=== PATIENT | male | born 1945 | race Caucasian/White ===

== ENCOUNTER → 2019-02-03 | Outpatient (CLI) | payer OTHER ==
[~2019-02-03] MED LIST: ACEON4 MG PO; CALCIUM OR; FINASTERIDE5 MG PO; FISHOIL; FLOMAX PO; LIPITOR40 MG; PROTONIX40 M2 PO; SELENIMIN50 MCG PO; SMZ/TMP DS 800/160; TOPROL XL50 MG PO; VITAMIN E400 UNI1 PO; ZINC CHELATE15 MG PO
--- NOTE | 2019-02-03 15:25 | EXE ---
[facility] [place] [address] STRESS ECHOCARDIOGRAM Name: MENG CARLSON Room #: SARAH Garza#: [id number] ������������� Admission: 02/03/19 ������������� Attend Phys: Ludwin Colon, Discharge: ��� ������������� ��� Date of : 45 Date of Service: 02/03/19 1525 �� Report #: [id number] �������� ��������������������������������������������[id number] THIS REPORT FOR: //name// APPROVED REPORT Study performed: 02/03/2019 13:23:51 Exam: Stress Echocardiogram Indication: CAD Patient Location: Out-Patient Stress Nurse: Nazia Murrieta RN Room #: Echo lab 2 Status: routine Ht: 5 ft 10 in HR: 76 bpm BP: 112/72 mmHg Rhythm: NSR Medical History Medical History: CAD s/p AR Cardiac Risk Factors: HTN, Hyperlipidemia Exercise History: Sedentary Procedure The patient underwent an Exercise Stress Test using the Modified Meng Protocol. Blood pressure, heart rate, and EKG were monitored. An Echocardiogram was performed by monogram technician in four stages in quad fashion. At peak stress, four selected images were obtained and placed side by side with resting images for comparison. Stress Test Details Stress Test: Exercise stress testing was performed using a modified Meng protocol. HR Resting HR: 76 bpm Max Heart Rate (APMHR): 147 bpm Max HR Achieved: 120 bpm Target HR (85% APMHR): 124 bpm % of APMHR: 81 Recovery HR: 87 bpm HR response to stress: Normal HR response to stress BP Resting BP: 112/72 mmHg Max BP: 160/76 mmHg Recovery BP: 136/76 mmHg [facility] [email or web address] [address] STRESS ECHOCARDIOGRAM Name: MENG CARLSON Room #: REG [facility]#: [id number] ������������� Admission: 02/03/19 ������������� Attend Phys: Ludwin Colon, Discharge: ��� ������������� ��� Date of : 45 Date of Service: 02/03/19 1525 �� Report #: [id number] �������� ��������������������������������������������[id number] BP response to stress: Normal blood pressure response to stress. ECG Resting ECG: Sinus Rhythm Stress ECG: Sinus Rhythm ST Change: Normal Maximum ST Deviation: 0 mm Arrhythmia: VPC Recovery ECG: Sinus Rhythm Recovery ST Deviation: 0 mm Recovery Arrhythmia: None Clinical Reason for Termination: Maximal effort Exercise duration: 8 min sec Highest Stage Achieved: Stage 2: 2.5 mph at 12% grade. Exercise capacity: 7 METs Overall Exercise Capacity for Age: Average Angina Score: None Stress ECG Conclusion Clinical: Non-ischemic ECG: Non-ischemic Gordon Treadmill Score is 8.0 which is Low risk. Pre-Stress Echo The resting Echocardiogram showed left ventricular contractility with an estimated Ejection Fraction of about >55%. Post-Stress Echo The stress Echocardiogram showed normal left ventricular contractility with an estimated Ejection Fraction of about 65-70%. Clinical Normal augmentation of myocardial wall segments using a 17 segment model. No clinical or ECG evidence for ischemia. Conclusion Clinical Response: Non-ischemic Exercise Capacity: Below Average Stress ECG Response: Non-ischemic Stress Echo Images: Non-ischemic The left ventricle is normal in size and wall thickness in both the rest and stress images. Normal stress echocardiogram with submaximal exercise stress. [facility] [place] [address] STRESS ECHOCARDIOGRAM Name: MENG CARLSON Room #: REG [facility]#: [id number] ������������� Admission: 02/03/19 ������������� Attend Phys: Ludwin Colon, Discharge: ��� ������������� ��� Date of : 45 Date of Service: 02/03/19 152 �� Report #: [id number] �������� ��������������������������������������������[id number] Other Information Study Quality: Adequate <Conclusion> The left ventricle is normal in size and wall thickness in both the rest and stress images. Normal stress echocardiogram with submaximal exercise stress. ��������������������������������������������� <ELECTRONICALLY SIGNED> ���������������������������������������� By: Ludwin Colon MD, FACC ��������������������������������������������� 02/03/19 1525 152 24 Ludwin Colon MD, FACC /INF
== END ==
LOC: CV 01-27 06:58
DX: I25.10 Atherosclerotic heart disease of native coronary artery without angina pectoris (principal); I10 Essential (primary) hypertension; E78.5 Hyperlipidemia, unspecified

== ENCOUNTER 2019-12-14 12:29 | Emergency (ER) | payer OTHER ==
[~2019-12-14] VITALS: Ht 172.7 cm; Wt 72.6 kg
--- NOTE | ~2019-12-14 | EKG ---
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
[2019-12-14 14:01] LABS: ABSOLUTE NEUTROPHILS 7.9 thou/uL (1.4-8.2); BASOPHILS 0.6 % (0.0-2.0); EOSINOPHILS 6.5 % (0.0-3.0); HEMOGLOBIN 8.1 gm/dL (14.0-18.0); LYMPHOCYTES 14.1 % (24.0-44.0); MCH 22.8 pg (26.0-34.0); MCV 73.5 fL (80.0-100.0); MONOCYTES 9.9 % (1.0-8.0); PLATELET COUNT 499 thou/uL (150-400); POLYS 68.9 % (36.0-66.0); RBC 3.54 mil/uL (4.50-6.00); RDW 15.7 % (10.5-14.5); WBC 11.5 thou/uL (4.0-11.0)
[2019-12-14 14:14] LABS: CALCIUM 8.6 mg/dL (8.5-10.1); CREATININE 0.8 mg/dL (0.7-1.3); POTASSIUM 3.7 mmol/L (3.5-5.1)
[2019-12-14 14:21] LABS: ALBUMIN 3.5 g/dL (3.4-5.0); DIRECT BILIRUBIN 0.1 mg/dL (<0.1-0.2); SGOT 23 U/L (15-37); SGPT 21 U/L (30-65); TOTAL BILIRUBIN 0.3 mg/dL (<0.1-1.0); TOTAL PROTEIN 7.5 g/dL (6.4-8.2); TROPONIN-I <0.06 ng/mL (<0.06)
[2019-12-14 14:45] LABS: ANISOCYTOSIS 2+; MICROCYTES 1+; POLYCHROMASIA SLIGHT
[2019-12-14 14:46] LABS: HYPOCHROMASIA 1+; POIKILOCYTOSIS 1+
[2019-12-14] MEDS ORDERED: TRAMADOL 50 MG50 MG PO (15:30)
[2019-12-14 15:48] VITALS: BP 141/67
== END 2019-12-14 15:48 | disposition home or self-care (01) ==
LOC: ER 12:29
PROVIDERS: Nurse Practitioner Family
DX: R91.8 Other nonspecific abnormal finding of lung field (principal); D64.9 Anemia, unspecified; R07.89 Other chest pain; I10 Essential (primary) hypertension; I25.10 Atherosclerotic heart disease of native coronary artery without angina pectoris; E78.00 Pure hypercholesterolemia, unspecified; Z90.49 Acquired absence of other specified parts of digestive tract; Z95.5 Presence of coronary angioplasty implant and graft

== ENCOUNTER 2020-01-05 13:31 | Emergency (ER) | payer OTHER ==
[~2020-01-05] VITALS: Ht 177.8 cm; Wt 68.0 kg
[~2020-01-05 13:31] MED LIST changes: +TRAMADOL 50 MG50 MG PO
[2020-01-05] MEDS ORDERED: NORCO 5-325 TA1 EAC1 PO (14:39)
[2020-01-05] MEDS ORDERED: LIDODERM1 EACH TOP (14:39)
[2020-01-05] MEDS ORDERED: ZOFRAN ODT4 MG PO (14:40)
[2020-01-05 15:54] VITALS: BP 131/74
--- NOTE | 2020-01-05 16:57 | NUR ---
FAXED REFERRAL TO [facility] SPOKE WITH IVY IN INTAKE SHE RECEIVED REFERRAL AND CAN ACCEPT. FAXED DC ORDER FOR HOME PT/OT THEY WILL NOTIFY PT TIME OF VISITS. CASE CLOSED.
== END 2020-01-05 15:54 | disposition home or self-care (01) ==
LOC: ER 13:31
DX: C79.89 Secondary malignant neoplasm of other specified sites (principal); M54.6 Pain in thoracic spine; I10 Essential (primary) hypertension; I25.10 Atherosclerotic heart disease of native coronary artery without angina pectoris; E78.00 Pure hypercholesterolemia, unspecified; Z90.49 Acquired absence of other specified parts of digestive tract; Z95.5 Presence of coronary angioplasty implant and graft

== ENCOUNTER → 2020-01-06 | Outpatient (CLI) | payer OTHER ==
[~2020-01-06] MED LIST changes: +IRON325 PO; +LIDODERM1 EACH TOP; +LYNOX 10-300 M1 EACH PO; +NORCO 5-325 TA1 EAC1 PO; +ZOFRAN ODT4 MG PO
== END ==
LOC: MRI 09:43 → CAT 09:43
DX: R16.0 Hepatomegaly, not elsewhere classified (principal); R91.8 Other nonspecific abnormal finding of lung field; D64.9 Anemia, unspecified; R90.82 White matter disease, unspecified; G31.9 Degenerative disease of nervous system, unspecified; I70.0 Atherosclerosis of aorta; K56.41 Fecal impaction; M25.78 Osteophyte, vertebrae; M48.04 Spinal stenosis, thoracic region; M41.84 Other forms of scoliosis, thoracic region

== ENCOUNTER 2020-01-08 17:11 | Emergency (ER) | payer OTHER ==
[~2020-01-08] VITALS: Ht 177.8 cm; Wt 68.0 kg
[~2020-01-08 17:11] MED LIST changes: -IRON325 PO; -LYNOX 10-300 M1 EACH PO
[2020-01-08 19:07] LABS: HEMATOCRIT 23.1 % (42.0-52.0); HEMOGLOBIN 7.1 gm/dL (14.0-18.0); MCH 20.9 pg (26.0-34.0); MCHC 30.8 g/dL (28.0-37.0); PLATELET COUNT 470 thou/uL (150-400); RBC 3.39 mil/uL (4.50-6.00); RDW 16.2 % (10.5-14.5); WBC 9.6 thou/uL (4.0-11.0)
[2020-01-08 19:12] LABS: CALCIUM 8.9 mg/dL (8.5-10.1); CREATININE 0.7 mg/dL (0.7-1.3); POTASSIUM 3.6 mmol/L (3.5-5.1)
[2020-01-08 19:18] LABS: ALBUMIN 3.1 g/dL (3.4-5.0); TOTAL BILIRUBIN 0.5 mg/dL (<0.1-1.0); TOTAL PROTEIN 6.5 g/dL (6.4-8.2)
[2020-01-08 19:39] LABS: ABSOLUTE NEUTROPHILS 7.9 thou/uL (1.4-8.2); ANISOCYTOSIS 1+; MICROCYTES 1+
[2020-01-08 19:40] LABS: HYPOCHROMASIA 1+
[2020-01-08] MEDS ORDERED: LYNOX 10-300 M1 EACH PO (20:19)
[2020-01-08] MEDS ORDERED: IRON325 PO (20:29)
[2020-01-08 20:56] VITALS: BP 142/68
== END 2020-01-08 20:50 | disposition left against medical advice (07) ==
LOC: ER 17:11
PROVIDERS: Physician Assistant
DX: D64.9 Anemia, unspecified (principal); M54.9 Dorsalgia, unspecified; I25.10 Atherosclerotic heart disease of native coronary artery without angina pectoris; I10 Essential (primary) hypertension; E78.00 Pure hypercholesterolemia, unspecified; Z90.89 Acquired absence of other organs

== ENCOUNTER → 2020-01-12 | Outpatient (CLI) | payer OTHER ==
[~2020-01-12] MED LIST changes: +IRON325 PO; +LYNOX 10-300 M1 EACH PO
[2020-01-12 11:45] VITALS: BP 150/74
--- NOTE | 2020-01-12 13:50 | NUR ---
PT GIVEN FENTANYL 50 MCG AND VERSED 1 MG FOR PROCEDURE, CT GUIDED LIVER BX. GIVEN AT 1110.
--- NOTE | 2020-01-14 16:07 | PATH ---
[facility] [address] [place] [address] PATHOLOGY RPT PROCEDURE Name: MENG CARLSON Room #: REG [facility] M.R.#: [id number] Admission: 01/12/20 Date of : 45 Discharge: Report #: [id number] Path Case #: [id number] [facility] Accession Number: [id number] . 01 Material submitted: . liver - LIVER BX . 01 Clinical history: . liver mass . 02 Diagnosis: Liver, mass, needle core biopsy: - MODERATELY DIFFERENTIATED ADENOCARCINOMA, FAVOR COLON ORIGIN (PLEASE SEE COMMENT). [facility] 01/14/2020 1211 Local . 02 Comment: Examination shows a moderately differentiated adenocarcinoma associated with "dirty necrosis" in the center of the malignant glands. One needle core biopsy tissue represents uninvolved hepatic parenchyma. History of multiple hepatic lesions, pulmonary mass lesions as well as bone lesions is gathered from the electronic medical record. History of possible colon carcinoma is gathered as well. Multiple properly controlled immunohistochemical stains are performed on block A2. The tumor shows strong nuclear reactivity with CDX-2. The tumor cells show scattered rare cells reactive to CK-20. CK7, as well as TTF-1 showed no reactivity within the tumor cells. CK19 shows diffuse membranous reactivity present within the malignant glands as well as the interlobular bile ducts identified. Overall, the features are certainly compatible with a metastatic colonic adenocarcinoma. The strongly reactive CK19 is suggestive of a possible "pancreato-biliary" primary; however, the non-reactive CK7 argues against the same. The non-reactive TTF-1 argues against a lung origin as well. . Co-review: Dr. Brenda Maza. . Findings of this case are telephoned to Dr. Roberts at noon on 01/13/2020. (IUV/db; 01/14/2020) . 02 Electronically signed: . Daphne Davidson MD, Pathologist NPI- [id number] . 01 Gross description: . The specimen is received in formalin, labeled "Meng Carlson, liver BX" and consists of multiple chauhan-brown delicate needle cores and their fragments measuring between 0.1 cm and 0.9 cm in length and 0.1 [place] [address] PATHOLOGY RPT PROCEDURE Name: MENG CARLSON Room #: REG [facility]#: [id number] Admission: 01/12/20 Date of : 45 Discharge: Report #: [id number] Path Case #: [id number] diameter. They are entirely submitted in A1-A3. (SDY; 01/12/2020) SYU/SYU 01/12/2020 1544 Local . 02 Pathologist provided ICD-10: C22.9 . 02 CPT . 151375, O17499, W65002 Specimen Comment: A courtesy copy of this report has been sent to [phone], [phone] Specimen Comment: [phone] Specimen Comment: Report sent to / DR MANCUSO Performed at: [address], [place] [id number] MD Jerad Ramos MD Phone: [phone] Performed at: [address] [id number] MD Daphne Davidson MD Phone: [phone]
== END ==
LOC: ULTRA 08:51 → CV 08:51 → ULTRA 19:56
DX: R16.0 Hepatomegaly, not elsewhere classified (principal)

== ENCOUNTER 2020-02-23 12:23 | Inpatient (IN) | payer OTHER ==
[~2020-02-23] VITALS: Ht 172.7 cm; Wt 59.0 kg
[2020-02-23 12:24] VITALS: BP 118/67
[2020-02-23 13:18] LABS: ANION GAP 6 mmol/L (7-16); BUN 9 mg/dL (7-18); CALCIUM 7.3 mg/dL (8.5-10.1); CHLORIDE 97 mmol/L (98-107); CO2 26 mmol/L (21-32); CREATININE 0.5 mg/dL (0.7-1.3); GLUCOSE 101 mg/dL (74-106); POTASSIUM 3.8 mmol/L (3.5-5.1); SODIUM 129 mmol/L (136-145)
[2020-02-23 13:28] LABS: ALBUMIN 1.5 g/dL (3.4-5.0); SGOT 39 U/L (15-37); SGPT 15 U/L (30-65); TOTAL BILIRUBIN 0.9 mg/dL (<0.1-1.0); TOTAL PROTEIN 5.3 g/dL (6.4-8.2); TROPONIN-I <0.06 ng/mL (<0.06)
[2020-02-23 13:56] LABS: ABSOLUTE NEUTROPHILS 14.1 thou/uL (1.4-8.2); BASOPHILS 0.8 % (0.0-2.0); EOSINOPHILS 0.2 % (0.0-3.0); HEMATOCRIT 32.1 % (42.0-52.0); HEMOGLOBIN 10.1 gm/dL (14.0-18.0); LYMPHOCYTES 3.4 % (24.0-44.0); MCH 25.8 pg (26.0-34.0); MCHC 31.4 g/dL (28.0-37.0); MCV 82.1 fL (80.0-100.0); MONOCYTES 6.3 % (1.0-8.0); PLATELET COUNT 292 thou/uL (150-400); POLYS 89.3 % (36.0-66.0); RDW 30.4 % (10.5-14.5); WBC 15.8 thou/uL (4.0-11.0)
[2020-02-23 14:58] LABS: URINE BLOOD TRACE (Negative); URINE COLOR YELLOW; URINE GLUCOSE-RANDOM* NEGATIVE (Negative); URINE KETONES NEGATIVE (Negative); URINE LEUKOCYTES-REFLEX TRACE (Negative); URINE NITRITE-REFLEX POSITIVE (Negative); URINE PROTEIN (DIPSTICK) 1+ (Negative); URINE SPECIFIC GRAVITY 1.025 (1.005-1.035)
[2020-02-23 14:59] LABS: URINE CLARITY HAZY
[2020-02-23 15:01] LABS: ICTOTEST (BILI CONFIRMATORY) Negative (Negative); URINE BILIRUBIN NEGATIVE (Negative)
[2020-02-23 15:09] LABS: ANISOCYTOSIS 3+; HYPOCHROMASIA 1+; MACROCYTES 1+; MICROCYTES 1+; OVALOCYTES FEW
[2020-02-23 15:24] LABS: CASTS None Seen /LPF (None Seen); CRYSTALS None Seen /LPF (None Seen); SQUAMOUS None Seen /LPF (0-3)
[2020-02-23 15:25] LABS: BACTERIA-REFLEX >30 Many /HPF (None Seen); URINE RBC None Seen /HPF (0-2); URINE WBC-REFLEX 6-15 Few /HPF (0-5)
--- NOTE | 2020-02-23 15:54 | EKG ---
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 : 1945 Requested By: Alfonso Amaral Order Number: [id number] MD: Terrence Mtz Measurements Intervals [place] Rate: 89 P: 38 ID: [id number] QRS: -7 QRSD: 102 T: 29 QT: 389 QTc: 474 Interpretive Statements Sinus rhythm Low voltage, precordial leads Abnormal R-wave progression, early transition Compared to ECG 12/14/2019 13:41:10 Low QRS voltage now present Electronically Signed On 02-23-2020 15:53:23 CDT by Terrence Mtz [email or web address] <ELECTRONICALLY SIGNED> By: Terrence Mtz MD 02/23/20 1553 1232 1232 Terrence Mtz MD /EPI
[2020-02-23 18:48] LABS: TSH 2.329 uIU/mL (0.358-3.740)
[2020-02-23 19:06] VITALS: BP 107/64
[2020-02-23 19:30] VITALS: BP 129/71
[2020-02-23 19:50] VITALS: BP 130/56
[2020-02-23 23:12] VITALS: BP 108/58
--- NOTE | 2020-02-24 01:12 | NUR ---
PT ARRIVED ON THE UNIT FROM ER @1945 A&0X4. PT ORIENTED TO THE ROOM. ADM DONE AND CHARTED. IV INTACT AND FLUIDS INFUISING. URINAL BY BEDSIDE. PT UP WITH ASSISTX1 TO THE BATHROOM HAD A SMALL BM THIS SHIFT. PT STATES HE HAS POOR APPETITE AND HAS BEEN EATING POORLY AT HOME AND ALSO GETS CHEMOTHERAPY AT BUT IS CURRENTLY ON HOLD. PO FLUID ENCOURAGED. FALL PREC IN PLACE AND CALL LIGHT IN REACH WILL CONT WITH POC TILL EOS.
[2020-02-24 04:36] LABS: CALCIUM 7.1 mg/dL (8.5-10.1); CREATININE 0.4 mg/dL (0.7-1.3); MAGNESIUM 1.7 mg/dL (1.8-2.4); POTASSIUM 3.1 mmol/L (3.5-5.1)
[2020-02-24 05:09] LABS: HEMATOCRIT 25.9 % (42.0-52.0); HEMOGLOBIN 8.4 gm/dL (14.0-18.0); MCH 26.8 pg (26.0-34.0); MCHC 32.4 g/dL (28.0-37.0); MCV 82.8 fL (80.0-100.0); PLATELET COUNT 274 thou/uL (150-400); RBC 3.13 mil/uL (4.50-6.00); RDW 30.9 % (10.5-14.5); WBC 10.2 thou/uL (4.0-11.0)
[2020-02-24 05:10] VITALS: BP 105/53
[2020-02-24 07:30] VITALS: BP 97/45
[2020-02-24 08:19] LABS: % SATURATION 44 % (20-39); IRON 27 ug/dL (65-175); TIBC 62 ug/dL (250-450)
[2020-02-24 08:23] LABS: ANISOCYTOSIS 1+; BURR CELLS OCCASIONAL; HYPOCHROMASIA SLIGHT; POIKILOCYTOSIS 1+; TARGET CELLS OCCASIONAL
[2020-02-24 08:35] LABS: FOLIC ACID 3.8 ng/mL (8.6-58.9)
--- NOTE | 2020-02-24 11:52 | NUR ---
Pt has folate and vitamin D deficiency, recommend obtain order for supplementation.
--- NOTE | 2020-02-24 15:04 | NUR ---
PT ADMITTED RELATED TO WEAKNESS AND BILAT LE SWELLING. CM REVIEWED CHART AND SPOKE WITH CARE TEAM. CM CALLED AND SPOKE WITH PT OVER THE PHONE THIS MORNING. PT APPEARED TO BE A&O X4. CM ROLE INTRODUCED. PT INDICATED HE LIVES ALONE IN A CONDO WITH 2 STEPS TO ENTER AND 1 STEP INSIDE. PT INDICATED HE HAS A CANE AND A FWW FOR USE AT HOME. PT INDICATED HE JUST FINISHED RADIATION AT AND CHEMO IS CURRENTLY ON HOLD. PT CONFIRMED THAT HIS PCP IS DR. MANCUSO. OUR RECORDS INDICATED THAT REFERRAL HAD BEEN SENT TO [facility] BUT PT INDICATED NO HH HX. CM SPOKE WITH PT ABOUT REPORT THAT THERE WAS DEBRIS AND DOG FECES IN THE HOME. PT INDICATED THAT HIS SISTER WHO IS ON HER WAY HERE FROM [place] WILL HIRE MARISSA TAI TO CLEAN CONDO. PT INDICATED HE PLANS TO RETURN HOME ONCE MEDICALLY STABLE AND THAT HE HOPES TO GO BACK TO [place] WITH SISTER. CM CALLED AND SPOKE WITH SISTER SHE WAS ON ROAD IN [place]. SHE ISN'T PT'S DPOA JUST ONLY NEXT OF KIN. SHE HAD SPOKEN WITH DR. ZAVALETA IN PAST BUT NOT RECENTLY. SHE IS HERE TO ASSIT BUT CAN'T STAY. SHE STATED THAT PT HAD ASKED ABOUT COMING TO STAY WITH HER IN [place] AND THAT SHE HADN'T DENIED HIM BUT THAT SHE WOULD BE SUPPORTIVE OF SERVICES AND SUPPORTS FOR HIM TO BE ABLE TO REMAIN HERE IT'S WHERE HE LIVES AND SHE'S HAD LIFE IN [place] AND NEEDS HIM TO BE ABLE TO COMPLETE ADLS. CM TO FOLLOW INDICATED WITH DC PLANNING.
[2020-02-24 15:33] VITALS: BP 120/60
--- NOTE | 2020-02-24 19:35 | NUR ---
Assumed pt care this am, pt is alert and oriented x3 but very forgetful and at times could get rude during assessment, does not want to be asked questions. Initially said yes to going for the MR, was taken down but refused to push through, pt returned to the floor informed MD. IV was out upon receiving the pt this am, informed MD all meds have been converted to PO. Appetite is poor, suppliments are hardly taken, small frequent feedings are done through out the day along with hydration, POC followed, no signs or verbalizations of distress have been noted. Endorsed to the night nurse. Fall precautions in place , is able to use the commode and stayed on the recliner in the am.
[2020-02-24 20:12] VITALS: BP 103/57
--- NOTE | 2020-02-24 22:27 | HC ---
[facility] [place] [address] CONSULTATION Name: RAPHAEL CARLSON Room #: 440-P ADM IN M.R.#: [id number] Admission: 02/23/20 Attend Phys: Robert Little MD Discharge: Date of : 45 Report #: [id number] THIS REPORT FOR: cc: FAM - Family physician unknown FAM - Family physician unknown Miguel Wallis MD ~ CC: Robert Gamino MD [facility] unknown REQUESTING CLINICIAN: Dr. Judith Barfield REASON FOR CONSULTATION: History of metastatic cancer. HISTORY OF PRESENT ILLNESS: The patient is a 74-year-old gentleman patient referred by Dr. Carlos Gamino with a history of weakness and decline in general health since about August. CAT scan found a spiculated lung mass as well as liver masses and also bone mets. The patient underwent a liver biopsy at [facility] in about 01/14/2020 which showed moderate to poorly differentiated adenocarcinoma. Additional stains are pending. The stain is possible pancreaticobiliary, but clinically this seems most consistent with a lung cancer. The patient was also iron deficient, so there is also a question about whether he could have a GI primary. Those scans have not revealed any suggestions on that. The patient has been undergoing radiation therapy to his back. He was deemed too weak and poor social support to consider chemotherapy. The patient just recently completed radiation therapy; we are now waiting to see if he can bounce back enough to consider therapy. Also, note that he has very poor social support with no one in the vicinity. His sister is as we speak traveling from out of [facility]. He jokingly calls her the evil sister. He does have a pet at home. The patient recently denies any headache, any fevers or chills. Does have poor appetite. Does not have a skin rash. Does not have any blood in his urine or stool. No mouth sores. PAST MEDICAL HISTORY: Notable for the history of the metastatic adenocarcinoma with liver biopsy, possible lung primary, who just recently receive radiation therapy to his back for improvement of pain. Also, history of BPH, also hyperlipidemia, also possible hypertension. 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 No significant alcohol or tobacco use. FAMILY HISTORY: Noncontributory. Has a sister from out of town. I do not believe he is . Does not have any children. [facility] [address] [place] [address] CONSULTATION Name: RAPHAEL CARLSON Room #: 440-P [facility] ..#: [id number] Admission: 02/23/20 Attend Phys: Robert Little MD Discharge: Date of : 45 Report #: [id number] MEDICATIONS: At this time currently include ceftriaxone, finasteride 5 mg daily, pantoprazole 40 daily, iron sulfate 325 b.i.d., heparin 5000 units b.i.d., diclofenac sodium topically, hydrocodone p.r.n., MiraLax p.r.n., Zofran p.r.n., IV fluids. PHYSICAL EXAMINATION: GENERAL: The patient appears his stated age. He is an elderly white male with poor dentition. VITAL SIGNS: Height is 5 feet 8 inches, 172.7 cm. Weight is 130 pounds or 59.02 kilograms. Blood pressure is 97/45, O2 sat 98%, respirations 18, pulse 75, afebrile at 98.7. MOOD: He is alert and pleasant, ____ has a hard time focusing his conversation. NEUROLOGIC: Speech and thought pattern generally intact. Moving extremities well. HEENT: Oropharynx, slightly dry mucosa. No thrush or lesions. Again, poor dentition, missing a number of teeth. LUNGS: Mostly clear without any wheezes, rhonchi or rales. HEART: Regular rate. LYMPHATICS: No enlarged lymph nodes in the supraclavicular, cervical, axillary or inguinal region. ABDOMEN: Scaphoid without masses. EXTREMITIES: Without clubbing, cyanosis or edema. RADIOLOGIC STUDIES: Done here include venous Doppler ultrasound of both legs yesterday that was unremarkable. Chest x-ray showing the spiculated mass in the right upper lobe. MRI head ordered by myself is pending. Lab review shows a BUN of 8, creatinine of 0.4. Sodium 129, now today 133. Total bilirubin 0.9, magnesium 1.7, alkaline phosphatase 217, ALT 15, albumin 1.5. Iron recently 27, low; TIBC 62, low; percent iron saturation 44%, slightly high. White count 10.2, hemoglobin 8.4. MCV 82.8, note that this is improved from about 65 and 73 back in December of this year. Platelets 274. Differential nonacute. UA did show many bacteria, some white cells with nitrite positive. Culture is pending. ASSESSMENT AND PLAN: 1. Metastatic adenocarcinoma, possible lung primary, but also possible the patient has 2 separate primaries, recently completed radiation therapy. Had discussed chemotherapy with the patient, but given his very poor social support, I have discussed with the patient I am afraid ____ may do more harm than benefit. We will await and discuss with sister. May need to consider moving back with sister or moving forward with nursing facility and hospice locally. 2. Dizziness and falling. We will check MRI head, which we have talked to the patient about as an outpatient, but he had declined. He has poor transportation issues. 3. Poor appetite and weakness. We will try prednisone 20 mg daily and watch cautiously. [facility] [address] [place] [address] CONSULTATION Name: RAPHAEL CARLSON Room #: 440-P ADM IN M.R.#: [id number] Admission: 02/23/20 Attend Phys: Robert Little MD Discharge: Date of : 45 Report #: [id number] 4. Possible urinary tract infection. Cultures pending. Continue antibiotics per others. 5. Hyperlipidemia. Statins as per others. 6. Back pain, improved status post radiation therapies. Continue diclofenac gel and hydrocodone and other agents. 7. Prophylaxis. Continue acid vicente as well as heparin. 8. Protein-calorie malnutrition. Offer nutritional support. 9. Weakness. Rehabilitation therapy services to see the patient. 10. Prognosis, probably very poor. Insight is also evolving. <ELECTRONICALLY SIGNED> By: Miguel Wallis MD 02/24/20 2227 0909 0946 Miguel Wallis MD /nt
--- NOTE | 2020-02-25 04:22 | NUR ---
ASSESSED AT START OF SHIFT PT A&OX3. AWAKE AND AWARE OF SITUATION BUT FORGETFULL EASILY REORIENTED FOR THIS NURSE. INCONTINENT OF B&B. UP WITH ASSISTX1 TO BSC. BLACK STOOL NOTED PT ON IRON PILLS. DENIES PAIN, N/V. PO FLUIDS ENCOURAGED AND ADMINISTERED FREQ DURING SHIFT. PT STATES SISTER IS COMING FROM [place] AND HE HAS A MEETING WITH THE ONCOLOGIST. FALL PREC IN PLACE AND FREQ ROUNDING DONE. WILL CONT WITH POC TILL EOS.
[2020-02-25 04:47] VITALS: BP 111/52
[2020-02-25 05:35] LABS: HEMATOCRIT 27.9 % (42.0-52.0); HEMOGLOBIN 8.9 gm/dL (14.0-18.0); MCH 26.3 pg (26.0-34.0); MCHC 31.9 g/dL (28.0-37.0); MCV 82.6 fL (80.0-100.0); RBC 3.37 mil/uL (4.50-6.00); RDW 30.7 % (10.5-14.5); WBC 7.4 thou/uL (4.0-11.0)
[2020-02-25 08:05] VITALS: BP 117/52
--- NOTE | 2020-02-25 15:30 | NUR ---
PT WAS HAVING MRI OF THE HEAD TODAY. HOSPITALIST WAS TO REACH OUT TO PT'S SISTER AFTER MRI. PT STILL INDICATING TO STAFF THAT HE'S JUST GOING TO LIVE WITH HIS SISTER. CM FOLLOWING REGARDING DC PLANNING.
[2020-02-25 15:53] VITALS: BP 115/65
[2020-02-25 16:26] VITALS: BP 127/58
--- NOTE | 2020-02-25 18:19 | NUR ---
Assumed pt care this am, pt was far more confused today compared to yesterday. Pt was jumping out of the bed wanting to dress up and go home, seen by MD medication given for anxiety, pt had refused again to go for an MRI. Refused to have IV placed, does not eat any of his meals, only had 1 suppliment for the 3 meals. Progress in poor, POC followed, some medications were refused, pt got aggitated when meals were served, MD informed as well.
[2020-02-25 19:39] VITALS: BP 126/80
--- NOTE | 2020-02-26 01:28 | NUR ---
AT SHIFT CHANGE, PT MOVED CLOSER TO NURSING STATION (445) DUE TO BEING IMPULSIVE. PT REQUIRES ASSIST TO BSC. HE IS WEAK. PT ASKED FOR SANDWICH, HE ATE HALF OF IT, ATE THE FRUIT CUP AND DRANK SOME WATER. PT THEN SETTLED DOWN AND WENT TO SLEEP. PT BEEN SOUND ASLEEP, SNORING. HE EVEN REFUSED TO TAKE HIS BEDTIME MEDS.WHEN I TRIED TO WAKE HIM UP, HE YELLED " LEAVE ME ALONE".PT ON FALL PRECAUTIONS.NO FURTHER CONCERNS.
[2020-02-26 03:08] VITALS: BP 114/55
[2020-02-26 09:45] VITALS: BP 119/62
[2020-02-26 09:46] VITALS: BP 119/62
[2020-02-26 16:31] VITALS: BP 121/62
[2020-02-26] MEDS ORDERED: KEFLEX500 M1 PO (16:34)
[2020-02-26] MEDS ORDERED: LORAZEPAM 0.50.5 MG PO (16:34)
--- NOTE | 2020-02-26 16:52 | NUR ---
Pt dcing to [facility] SNF this evening between 5:30/6pm. [facility] for sn[facility]. [facility] is the only one that could offer him prepress technician care, medicaid pending and possible hospice once he is finished with rehab. Pt's sister Stanley updated. She is agreeable and acknowledges the importance of having that options. [employer] referral called [place] as he does not have a secondary ins. She will f/u with the pt's sister. DC orders faxed to [facility]. Nursing to call report. Chart copy and covid transfer assessment completed by nursing and to be sent with the chart. Case closed.
[2020-02-26 19:07] VITALS: BP 128/62
--- NOTE | 2020-02-26 19:29 | NUR ---
Assumed pt care this am, pt is still confused and impulsive wanting to leave stating he wants to go home and this is the worse place he has been in. Would refused medication time and would like to take them when he "feels like it". Poor appetiete is noted , supplements are harldy taken in. No IV access since all his medication is PO. Pt is to to be trasnfered to [facility] , report was given, transport came and took the pt on the wheelchair, Ed had called, pt had gotten out of the wheelchair before he was wheeled in to the van refusing to leave. House sup called and along with security was trying to conlvince pt to go to the rehab as he had agreed on this earlier or to go back in the hospital. Pt had refused both wanting to go home or to drop him off infron of a quick trip. Dr. Naqvi was in the ER , was able to convince the pt to go back in and go back to the room. FAll precautions in place , informed ramos Quezada ordered for safety. POC followed no signs or verbalizatons of distress was noted though ED had mentioend that pt had gotten ouf of the wheelchair and he had sat on the floor.
--- NOTE | 2020-02-27 04:46 | NUR ---
PATIENT ALERT AND ORIENTED X1 AT BEGINNING OF SHIFT. ANXIOUS AND ATTEMPTING TO GET OOB. SITTER PRESENT THROUGHOUT THE NIGHT. COOPERATIVE WITH TAKING MEDICATION. PATIENT CALMED DOWN AFTER EVENING MEDS AND SLEPT OFF AND ON DURING THE NIGHT. NO PRN MEDS GIVEN AT TIME OF NOTE. WILL MONITOR.
[2020-02-27 07:23] VITALS: BP 117/73
[2020-02-27 15:40] VITALS: BP 128/65
[2020-02-27 18:58] VITALS: BP 133/83
--- NOTE | 2020-02-27 20:30 | NUR ---
ASSUMED CARE OF THE PATIENT AT 0715, PATIENT ALERT WITH CONFUSION, AGITATED THIS AM, LORAZEPAM PO 1 MG GIVEN PRIOR TO THE SHIFT. PATIENT WAS SLEEP OF AND ON MOST OF THE SHIFT, AROUSABLE WHEN NAME CALLED. INCONT. OF B/B. PATIENT HAS POOR APPETITE, REFUSED MOST OF ALL 3 MEALS. [facility] HAS 1:1 SITTER THIS SHIFT. PATIENT WITH COACHING DID TAKE MEDS, BUT WILL SPIT THEM OUT. NO IV ACCESS. WILL CONTINUE TO MONITOR.
[2020-02-28 05:09] VITALS: BP 127/69
--- NOTE | 2020-02-28 07:43 | NUR ---
PT LYING IN BED. DENIES PAIN. INCONTINENT. SITTER AT BEDSIDE. RESTING COMFORTABLY. FREQUENT OBSERVATION.
[2020-02-28 08:03] VITALS: BP 127/80
[2020-02-28 12:42] VITALS: BP 104/61
--- NOTE | 2020-02-28 19:19 | NUR ---
ASSUMED CARE OF PATIENT AT 0715, PATIENT ALERT WIHT CONFUSION. PATIENT HAS BEEN CALM THIS SHIFT, COOPERATIVE WITH MEDS. PATIENT DENIES PAIN THIS SHIFT. PATIENT HAS POOR APPETITE. INCONT. OF B/B. POSSIBLE DISCHARGE TO [facility]. PATIENT ASSISTED UP TO THE CHAIR TODAY FOR LUNCH, STILL HAS WEAKNESS. 1:1 SITTER AT BEDSIDE, PATIENT WANTS TO GO HOME. PATIENT DID SPEAK WITH HIS SISTER ABOUT HIS DOGS, AND WAS HAPPY TO HEAR THEY MISSED HIM. WILL CONTINUE TO MONITOR.
[2020-02-28 19:31] VITALS: BP 108/70
--- NOTE | 2020-02-29 06:47 | NUR ---
PT LYING IN BED. DENIES PAIN. INCONTINENT. SITTER DC'D AT 0230. RESTING COMFORTABLY. NO NEEDS VOICED. CALL LIGHT WITHIN REACH. FREQUENT OBSERVATION.
[2020-02-29 07:25] VITALS: BP 109/57
--- NOTE | 2020-02-29 16:15 | NUR ---
PT REFUSED DISCHARGE TO [facility] SATURDAY. PT WAS BROUGHT BACK IN HOSPITAL AND SEEN BY PSYC. SHE DETERMINED THAT PT LACKS INSIGHT INTO MEDICAL CONDITION AND ISN'T ABLE TO LEAVE AMA. CM FOLLOWED UP WITH PT'S SISTER THIS AM. DR. GARY INDICATED THAT IF DC TO [facility] WAS ATTEMPTED TODAY PT WOULD LIKELY REFUSE AGAIN. HE REMAINS WITHOUT A SITTER FAR CM CAN TELL. PT WAS ANXIOUS THIS AM AND WAS GIVEN ATIVAN. CM TO DISCUSS DC PLANNING AND POSSIBLE DPOA WITH PT. CLINICAL UPDATES SENT TO [facility] THEY INDICATED THAT THEY ARE STILL WILLING AND ABLE TO ACCEPT PT ONCE MEDICALLY STABLE. CM TO FOLLOW INDICATED WITH DC PLANNING. HOSPITALIST WAS OK WITH NO DC THIS DAY.
--- NOTE | 2020-02-29 16:40 | NUR ---
FAXED CLINICAL UPDATE TO JACQUELINE OF RECEIVED CONFIRMATION AND SPOKE WITH YOLANDE IN ADM SHE RECEIVED UPDATE. DP TO FOLLOW.
[2020-02-29 16:42] VITALS: BP 122/65
[2020-02-29 20:07] VITALS: BP 129/63
--- NOTE | 2020-02-29 21:06 | NUR ---
VSS-AFEBRILE. LUNGS CLEAR-ROOM AIR. IRRITABLE ALL SHIFT, WANTING TO BE DISCHARGED HOME. IMPULSIVE-ATTEMPTS TO CLIMB OUT OF BED. FALL PRECAUTIONS IN PLACE.
--- NOTE | 2020-03-01 03:40 | NUR ---
Pt is confused. Asks about when he gets to go home. Is very impulsive. Was able to take meds okay in apple sauce. Likes pudding. Pt refuses to drink.Fall prec in place. Afebrile. Denies pain. Incontinent of bowel and bladder.
[2020-03-01 05:51] VITALS: BP 102/58
[2020-03-01 05:55] LABS: HEMATOCRIT 31.1 % (42.0-52.0); MCH 26.6 pg (26.0-34.0); MCHC 32.1 g/dL (28.0-37.0); PLATELET COUNT 298 thou/uL (150-400); RBC 3.75 mil/uL (4.50-6.00); RDW 30.2 % (10.5-14.5); WBC 14.4 thou/uL (4.0-11.0)
[2020-03-01 06:15] LABS: ALBUMIN 1.7 g/dL (3.4-5.0); CALCIUM 7.6 mg/dL (8.5-10.1); CREATININE 0.5 mg/dL (0.7-1.3); POTASSIUM 3.9 mmol/L (3.5-5.1); TOTAL PROTEIN 5.6 g/dL (6.4-8.2)
[2020-03-01 07:47] LABS: ABSOLUTE NEUTROPHILS 13.2 thou/uL (1.4-8.2); ANISOCYTOSIS 2+; PLATELET ESTIMATE NORMAL
[2020-03-01 08:32] VITALS: BP 108/61
--- NOTE | 2020-03-01 15:30 | NUR ---
CM CALLED AND SPOKE WITH PT IN HIS ROOM THIS AFTERNOON. PT INDICATED HE WANTED TO GO HOME. CM REITERATED THAT AT THIS TIME CARE TEAM INDICATED PT ISN'T SAFE TO RETURN DIRECTLY HOME AND THAT THEY ARE RECOMMENDING SHORT TERM POST ACUTE CARE STAY UNDER HIS INSURANCE FOR HIM TO GET THERAPY DAILY TO GET STRONGER AND SAFER. PT INDICATED HE JUST WANTED TO STOP HOME FIRST. CM STATED THAT PT WOULD BE GOING FROM HERE TO [facility] IN A WHEELCHAIR VAN AND THAT HE WOULDN'T BE ABLE TO GO HOME FIRST. JENNIE SPOKE WITH PT ABOUT DPOA AND ASKED IF PT WAS AGREEABLE WITH ANGELA VISITING TO COMPLETE ONE. PT INDICATED HE WOULD DO WHATEVER HE HAD TO TO GET OUT OF HERE. CM SPOKE WITH ANGELA BEN AND HE WAS GOING TO VISIT WITH PT TO SEE IF HE COULD ASSIST WITH DOING DPOA. JENNIE FOLLOWED UP WITH SISTER GRACE AND INDICATED THAT ABOVE. CM NOTIFIED [facility] LIAISON AND SENT UPDATES OVER. CM TO FOLLOW AND FACILITATE DC TO SKILLED AT [facility] TOMORROW.
--- NOTE | 2020-03-01 16:21 | NUR ---
FAXED DPOA PAPERS AND CLINICAL UPDATE TO [facility] OF [facility] SPOKE WITH YOLANDE IN ADM SHE RECEIVED PAPERWORK.
[2020-03-01 16:44] VITALS: BP 124/70
--- NOTE | 2020-03-01 18:37 | NUR ---
PT IS AOX2, IMPULSIVE BEHAVIOR. PT WANTS TO GO HOME AND WILL SCREAM OUT FOR HELP. PT IS INCONTINENT OF URINE, PT HAS ON BRIEF. DENIES PAIN, POOR APPETITE, BUT WILL DRINK ENSURE. FALL PRECAUTIONS IN PLACE, WILL CONTINUE TO MONITOR. FOR SAFETY.
[2020-03-01 19:55] VITALS: BP 117/67
--- NOTE | 2020-03-02 02:05 | NUR ---
ASSUMED PT CARE AT 1900. PT SLEEPING MOST OF THE SHIFT. WOKE UP FOR HIS NIGHTTIME MEDS, WHICH HE TOOK IN PUDDING WITH NO COMPLAINTS. PT ORIENTED TO PERSON, PLACE AND TIME TONIGHT - CONFUSED TO WHY HE IS HERE. ENCOURAGED PT TO EAT SOMETHING BUT DID NOT WANT TO. INCONTINENT OF BB. WILL CONTINUE TO MONITOR OVERNIGHT.
[2020-03-02 03:03] LABS: URINE BILIRUBIN 1+ (Negative); URINE BLOOD NEGATIVE (Negative); URINE CLARITY CLEAR; URINE COLOR YELLOW; URINE GLUCOSE-RANDOM* NEGATIVE (Negative); URINE KETONES TRACE (Negative); URINE LEUKOCYTES NEGATIVE (Negative); URINE NITRITE NEGATIVE (Negative); URINE PROTEIN (DIPSTICK) TRACE (Negative); URINE SPECIFIC GRAVITY 1.015 (1.005-1.035)
[2020-03-02 04:51] VITALS: BP 112/60
[2020-03-02 08:06] VITALS: BP 112/61
--- NOTE | 2020-03-02 14:50 | NUR ---
CARE TEAM AWARE THAT FACILITY WAS BALKING OVER PO HALDOL AND IT WAS DC'D. THEY NEED PT TO BE OFF IT FOR 48HRS [facility]NAGER [facility]. CM FOLLOWING TO FACILITATE DISCHARGE TO [facility] ONCE MEDICALLY STABLE. THERE HAD BEEN SOME DISCUSSION OF PT WANTING TO GO HOME WITH HOSPICE AND HIS FRIEND CHECKING ON HIM DAILY BUT CARE TEAM INDICATED THAT THEY THOUGHT THAT WOULD BE AN UNSAFE DISHCARGE AT PT IS NEEDING 24/7 SUPERVISION AND ASSISTANCE AT THIS TIME. STILL PERSUEING SKILLED POST ACUTE CARE STAY WITH POSSIBLE TRANSITION TO LTC WITH HOSPICE. ANGELA HAD SPOKEN WIHT PT ABOUT HIS SISTER GRACE WHO IS LEAVING [facility] TO RETURN TO [place] TOMORROW AND HIS FRIEND DARIEL VISITING HERE PRIOR TO DISCHARGE TODAY BUT PT WASN'T AGREEABLE TO THEIR VISITING. CM PROVIDED UPDATE TO SISTER GRACE. CM TO FOLLOW INDICATED WITH DC PLANNING.
[2020-03-02 16:45] VITALS: BP 118/62
--- NOTE | 2020-03-02 18:12 | NUR ---
PT IS AOX2, VSS, NO C/O PAIN AT THIS TIME. PT HAS POOR APPETITE AND HE WILL DRINK ENSURE WITH ENCOURAGEMENT. PT HAS LESLI COLORED URINE, FALL PRECAUTIONS IN PLACE. PT EDUCATED BY NURSE TO STAY IN BED AND CALL FOR HELP. CALL LIGHT AND PERSONAL ITEMS IN REACH. WILL CONTINUE TO MONITOR.
[2020-03-02 19:30] VITALS: BP 117/74
--- NOTE | 2020-03-03 02:58 | NUR ---
ASSUMED PT CARE AROUND 1914. AXOX4. VERY PLEASANT THIS EVENING. TOOK ALL MEDS W/O DIFFICULTY INCLUDING SUBQ INJECTION. PT VERBALIZED THAT PT WANTS TO GO HOME SOON. NOT IMPULSIVE AT THIS TIME. NO S/S ACUTE DISTRESS NOTED OR REPORTED AT THIS TIME. WILL CONT TO MONITOR FOR ANY CHANGES IN CONDITION.
[2020-03-03 05:42] VITALS: BP 126/69
[2020-03-03 07:29] VITALS: BP 108/64
[2020-03-03 11:39] VITALS: BP 108/64
--- NOTE | 2020-03-03 16:15 | NUR ---
ON-GOING ASSESSMENT: ATTENDING WROTE ORDERS FOR HOME WITH HH PT WAS NOT WANTING TO GO TO SNF. CM REACHED OUT TO PATIENTS SISTER/DPOA MIRANDA [phone] WHO STATES SHE DOES NOT FEEL COMFORTABLE WITH THAT PLAN. SHE IS HERE FROM [place] TO CLEAN HIS APT AND IS GOING BACK HOME TOMORROW. SHE REPORTS HIS HOME IS SO FILTHY THAT SHE HAS A HARD TIME EVEN WALKING IN THERE. SHE REPORTS HE HAS A FRIEND NAMED JUAN WHO SHE DOES NOT FEEL IS THERE FOR HIS BEST INTEREST. MIRANDA REPORTS SHE IS RETIRED AND CAN COME SEE PT OFTEN FROM [place] BUT CANT STAY WITH HIM 03/06. CM ALSO SPOKE WITH DR GARY WHO DOES NOT FEEL PT IS ABLE TO DISCHARGE HOME WITH 03/06 CARE. CM SPOKE WITH PT WHO STATES HE IS NOW AGREEABLE TO GO TO SNF. [facility]INE [facility] WILL ACCEPT PATIENT BUT NOT UNTIL 03/04 AFTER 0500 BECAUSE THAT WILL BE 48 HOURS AFTER HIS LAST DOSE OF HALDOL. CM UPDATED PATIENTS SISTER, DR. GARY, AND ATTENDING PHYSICIAN. CM ALSO UPDATED PATIENT AND HE IS AGREEABLE WITH PLAN. LIFE SKILLS TRAINER SEND UPDATES TO FACILITY. CM WILL CONTINUE TO FOLLOW TO ASSIT NEEDED.
--- NOTE | 2020-03-03 17:09 | NUR ---
PT A&OX2-3, VSS, DENIES PAIN. PATIENT REFUSING MEALS AND MORNING MEDICATION. PATIENT ANXIOUS ABOUT DISCHARGING, HE GETS FRUSTRATED AT TIMES BUT CAN BE CALMED. NO IV ACCESS AND PHYSICIAN AWARE. AWAITING PLACEMENT. WILL CONTINUE TO MONITOR.
[2020-03-03 19:11] VITALS: BP 122/65
[2020-03-04 04:40] VITALS: BP 106/64
--- NOTE | 2020-03-04 05:48 | NUR ---
ASSESSED AT START OF SHIFT PT RESTING IN BED. ALERT AND CALM. PT ASKING ABOUT THE FACILITY HE IS GOING TO INFORMED PT ABOUT PLAN. EVENING MEDS GIVEN AND PT DANIEL IT WELL. FALL PREC IN PLACE AND FREQ ROUNDING DONE. PT HAD 2 BM'S THIS SHIFT WILL CONT WITH POC TILL EOS.
[2020-03-04 08:32] VITALS: BP 109/62
--- NOTE | 2020-03-04 10:57 | NUR ---
ASSUMED CARE OF THE PATIENT AT 0715, PATIENT ALERT WITH CONFUSION. PATIENT DENIES PAIN THIS AM. PATIENT REFUSED BREAKFAST THIS AM. PATIENT DID TAKE AM MEDS WITH WATER. VSS, SHIFT ASSESSMENT DONE. PATIENT SCHEDULED TO LEAVE FOR FACILITY AT [id number] VIA STRETCHER. PATIENT UP WITH ASSIST TO BATHROOM. ELIE/NURSE RAIL TRANSPORTATION TABELER SPOKE WITH DAUGHTER/GRACE. WILL CONTINUE TO MONITOR.
--- NOTE | 2020-03-04 11:03 | HC ---
[facility] [place] [address] CONSULTATION Name: RAPHAEL CARLSON Room #: 445-P ADM IN .R.#: [id number] Admission: 02/23/20 Attend Phys: Robert Little MD Discharge: Date of : 45 Report #: [id number] THIS REPORT FOR: cc: ANAM - Family physician unknown ANAM - Family physician unknown Yovany Bolden MD ~ CC: Robert Little [facility] unknown DATE OF SERVICE: 02/24/2020 HISTORY OF PRESENT ILLNESS: The patient is a 74-year-old male who was admitted to [facility] with worsening condition. 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 He has completed 10 sessions of radiation. He has had worsening weakness in bilateral lower extremities and has lost greater than 40 pounds with decreased appetite and increased lower extremity edema. There is documentation of an unsafe home environment per EMS and he has been admitted for further assistance and evaluation. He was seen by Oncology, Dr. Wallis who notes that his prognosis is poor and that he may not tolerate chemotherapy. We are seeing him in rehabilitation medicine consultation. PAST MEDICAL HISTORY: As noted above. He does have a history of coronary artery disease, status post cardiac stent, hyperlipidemia, hypertension and he has the recent diagnosis of cancer as noted. MEDICATIONS: Please see the full medication listing. ALLERGIES: No known drug allergies. SOCIAL HISTORY: Lives in an apartment alone, one step in and cane ambulator. There is a sister that is out of town who apparently is coming, although when I discussed with him that she really could not visit with a COVID-19 pandemic, he appeared unaware of this. Appears to have decreased insight regarding current happenings and into his deficits. REVIEW OF SYSTEMS: No current complaints of chest pain, shortness of breath or abdominal discomfort. Notes some frustration with his overall condition. PHYSICAL EXAMINATION: GENERAL: A 74-year-old thin white male in no obvious distress. He is a bit cantankerous, but otherwise cooperative. VITAL SIGNS: His temperature is 98.7, pulse 75, respirations 18, and blood pressure is 97/45. NEUROLOGIC: He is alert. Facies are symmetric. Male pattern balding. Again, decreased insight into deficits, some slowed cognitive processing. Facies were [facility] [address] [place] [address] CONSULTATION Name: RAPHAEL CARLSON Room #: 445-P [facility] IN ..#: [id number] Admission: 02/23/20 Attend Phys: Robert Little MD Discharge: Date of : 45 Report #: [id number] symmetric. Functional range of motion of both upper extremities, strength grade 3+ to 4-/5. DTRs are 1. Lower extremities: He does have 2+ pitting edema up to mid kirkpatrick. No calf swelling. Strength is probably a grade 3+/5. There is no clonus. Sensation was reasonably intact bilateral large toes to proprioception. Occupational therapy notes that toileting is max assist. Transfers are mod assist and that he has poor endurance. Lower extremity dressing is max assist. ASSESSMENT: A 74-year-old male with the following problem list: 1. Increased generalized weakness. 2. Stage 4 cancer, likely lung with noted poor prognosis and may not tolerate chemo per Oncology. 3. Decreased insight into deficits. 4. Decreased endurance, noted to be poor endurance per Occupational Therapy. 5. Limited family support with noted unsafe home environment per EMS. PLAN: I do not see that he would qualify for an acute [address] [place] [address] inpatient rehabilitation stay. At this point, we will need to see how he does in therapies. Physical therapy has not yet evaluated him. Probably need to consider some type of skilled stay or unless the sister can give a lot of assistance and maybe he could return back into the home setting. Also wonder if hospice is something to consider. We will defer to current medical team. Thank you for asking us to assist in this patient's care. <ELECTRONICALLY SIGNED> By: Yovany Bolden MD 03/04/20 1103 [id number] Yovany Bolden MD /nt
--- NOTE | 2020-03-04 11:04 | NUR ---
PT DISCHARGING TODAY TO [facility] FAXED DC ORDERS/SUMMARY TO FACILITY SPOKE WITH YOLANDE IN ADM SHE RECEIVED ORDERS AND ARRANGED TRANSPORT BY VAN FOR [id number]. NOTIFIED PT'S SISTER (GRACE) OF DC AND TIME OF TRANSPORT. UNIT NOTIFIED AND CHART COPY PER US. RN TO CALL REPORT TO [phone].
--- NOTE | 2020-03-04 16:00 | NUR ---
CARE TEAM INDICATED PT IS MEDICALLY STABLE TO DC TO [facility] THIS DAY. ORDERS FAXED. CHART COPY MADE. REPORT GIVEN. [facility] TRANSPORT ARRANGED FOR 12:00-12:30. PT AND SISTER/DPOA GRACE ARE AWARE AND AGREEABLE. [id number] AND COVID-19 SCREENING TOOL FAXED. NO OTHER CM INTERVENTION INDICATED. CASE CLOSED.
== END 2020-03-04 13:15 | DRG 871 ==
LOC: ER 12:23 → EROBS 17:49 → 4S 17:49
PROVIDERS: Nurse Practitioner; Physician Assistant; Psychiatry & Neurology Psychiatry; ADMIT Hospitalist
DX: A41.9 Sepsis, unspecified organism (principal); E43 Unspecified severe protein-calorie malnutrition; N39.0 Urinary tract infection, site not specified; C34.90 Malignant neoplasm of unspecified part of unspecified bronchus or lung; Z68.1 Body mass index [BMI] 19.9 or less, adult; R53.81 Other malaise; R60.9 Edema, unspecified; I25.10 Atherosclerotic heart disease of native coronary artery without angina pectoris; I10 Essential (primary) hypertension; E78.5 Hyperlipidemia, unspecified; E78.00 Pure hypercholesterolemia, unspecified; N40.0 Benign prostatic hyperplasia without lower urinary tract symptoms; D64.9 Anemia, unspecified; M54.9 Dorsalgia, unspecified; G89.29 Other chronic pain; E55.9 Vitamin D deficiency, unspecified; G47.00 Insomnia, unspecified; E53.8 Deficiency of other specified B group vitamins; Z79.899 Other long term (current) drug therapy; Z79.891 Long term (current) use of opiate analgesic; Z85.118 Personal history of other malignant neoplasm of bronchus and lung; Z90.89 Acquired absence of other organs; Z95.5 Presence of coronary angioplasty implant and graft
CPT/HCPCS: 10102